=== PATIENT | female | born 1980 | race Caucasian/White ===

== ENCOUNTER 2018-03-29 09:38 | Emergency (ER) | payer SELFPAY ==
[2018-03-29] MEDS ORDERED: Lidocaine 1% (PF) 30 ML VIAL ONE (09:55)
[2018-03-29] MEDS ORDERED: Lidocaine 1% w/Epinephrine 1:100K 20 ML VIAL ONE (09:57)
[2018-03-29] MEDS ORDERED: Bacitracin Zinc 1 Packet ONE (10:10)
== END 2018-03-29 10:22 | disposition home or self-care (01) ==
LOC: ERS 09:38
DX: L02.415 Cutaneous abscess of right lower limb (principal); L02.416 Cutaneous abscess of left lower limb; E78.5 Hyperlipidemia, unspecified; I10 Essential (primary) hypertension; F17.210 Nicotine dependence, cigarettes, uncomplicated
CPT/HCPCS: 10061; J2001

== ENCOUNTER 2018-05-11 09:52 | Emergency (ER) | payer SELFPAY ==
[2018-05-11] MEDS ORDERED: Bacitracin Zinc 1 Packet ONE (11:48)
== END 2018-05-11 11:43 | disposition home or self-care (01) ==
LOC: ERS 09:52
DX: L03.115 Cellulitis of right lower limb (principal); E78.5 Hyperlipidemia, unspecified; I10 Essential (primary) hypertension; F17.210 Nicotine dependence, cigarettes, uncomplicated
CPT/HCPCS: 99283

== ENCOUNTER 2019-04-12 22:36 | Emergency (ER) | payer SELFPAY | END 2019-04-12 23:52 | disposition home or self-care (01) | LOC: ERS 22:36 | DX: L02.511 Cutaneous abscess of right hand (principal); L02.512 Cutaneous abscess of left hand; L03.113 Cellulitis of right upper limb; E78.5 Hyperlipidemia, unspecified; I10 Essential (primary) hypertension; F17.210 Nicotine dependence, cigarettes, uncomplicated | CPT/HCPCS: 99283 ==

== ENCOUNTER 2019-11-25 21:59 | Inpatient (IN) | payer OTHER, SELFPAY ==
[2019-11-25] MEDS ORDERED: EPINEPHrine 1 MG/ML AMP ONE (22:02)
[2019-11-25] MEDS ORDERED: Tranexamic Acid 1,000 MG/10 ML VIAL ONE (22:06)
[2019-11-25] MEDS ORDERED: methylPREDNISolone Sod Succ/PF 125 MG/2 ML VIAL ONE (22:06)
[2019-11-25] MEDS ORDERED: diphenhydrAMINE 50 MG/ML VIAL ONE (22:06)
[2019-11-25] MEDS ORDERED: Lidocaine 4% Topical Sol 50 ML BOT ONE (22:14)
[2019-11-25] MEDS ORDERED: Lidocaine 2% PF 5 ML VIAL ONE ×2 (22:15→22:19)
[2019-11-25] MEDS ORDERED: EPINEPHrine 1 MG, Admixture Fee 1 EACH in Dextrose 5% in Water 250 ML IVPB SCH (22:15)
[2019-11-25] MEDS ORDERED: Albuterol Sulfate 2.5 mg/3 ml Neb ONE (22:17)
--- NOTE | 2019-11-25 22:17 | PDOC.FPRHP ---
- History of Present Illness Chief Complaint: tongue swelling History of Present Illness: Sabra is a 39yoF who presents to the ED as a transfer from an outlying urgent care for acute tongue swelling. She states she ate cilantro, which has caused a reaction in the past but not this severe. She states she has a lot of food allergies. She is unable to give much more history due to difficulty speaking. Anesthesia was present in the room at the time of evaluation with the plan to take the patient to the OR for intubation. ED Course: Lidocaine neb, Epinephrine drip 1mcg/min, TXA, 125 solumedrol, glycopyrolate, NS 1L, 50mg benadryl - Allergies/Adverse Reactions Allergies Allergy/AdvReac Type Severity Reaction Status Date / Time clarithromycin [From Biaxin] Allergy Verified 11/26/19 01:41 cilantro Allergy Severe Anaphylaxis Uncoded 11/26/19 01:42 - History PMHx: HTN PSHx: C-sections FHx: Non-contributory. No fam hx of problems with anesthesia. Social: Unable to attain. - Review of Systems ROS unobtainable: other (tongue swelling, difficulty speaking. Some were asked in yes/no fashion.) ENT: reports: rhinorrhea Respiratory: reports: shortness of breath. denies: cough, congestion Cardiovascular: denies: chest pain Gastrointestinal: denies: nausea, vomiting, diarrhea Musculoskeletal: reports: swelling - Vital signs BP: 152/98, MAP: 116, Pulse: 117, Resp: 24, O2 sat: 100, Time: 11/25/2019 22:15. Weight 77kg - Physical Exam Constitutional: awake, alert and oriented -Constitutional: Tongue protruding from mouth HEENT: normocephalic and atraumatic, grossly normal vision, grossly normal hearing, MMM -HEENT: Tongue swelling, periorbital swelling Neck: trachea midline Heart: normal S1/S2, no murmurs/rubs/gallops, pulses present -Heart: Tachycardic Lungs: CTAB, no respiratory distress, good air movement, no rales/rhonchi, no wheezing, no retractions -Lungs: Upper airway noises. Abdomen: soft, non-tender, bowel sounds present Musculoskeletal: normal structure, normal tone Neurological: no focal deficit Skin: no rash/lesions, good turgor Heme/Lymphatic: no unusual bruising or bleeding, no purpura, no petechia Psychiatric: normal mood and affect FMR H&P: Results - Labs Result Diagrams: 11/25/19 22:08 11/26/19 06:52 - Radiology Interpretation Chest x-ray Status: report reviewed by me (FINDINGS: Lungs are clear. Heart and mediastinal contours appear within normal limits) FMR H&P: A/P - Problem List (1) Angioedema Current Visit: Yes Status: Acute Code(s): T78.3XXA - ANGIONEUROTIC EDEMA, INITIAL ENCOUNTER (2) HTN (hypertension) Current Visit: Yes Status: Acute Code(s): I10 - ESSENTIAL (PRIMARY) HYPERTENSION (3) Allergic reaction Current Visit: Yes Status: Acute Code(s): T78.40XA - ALLERGY, UNSPECIFIED, INITIAL ENCOUNTER - Plan Angioedema, from food allergy - Anesthesia and ENT consulted from ER. Plan to take patient to OR for intubation for airway protection overnight. - Swelling is already decreasing since arrival, anticipate intubation <48 hours. - Pulmonology consulted - FFP, steroids, antihistamines, epinephrine gtt HTN - unsure of home medication. Will reconcile tomorrow. Disposition/LOS: Dispo: Guarded, inpatient. LOS possibly > 48 hours. PCP: Olga Code: Full FMR H&P: Upper Level - Plan Date/Time: 11/25/192216 I, Benedict De La Rosa MD, have evaluated this patient and agree with findings/ plan as outlined by general internal medicine physician resident. Pertinent changes/additions are listed here. Angioedema - s/p antihistamines, steroids, and Epinephrine - Continue epinephrine drip - Patient to be intubated for airway protection by Anesthesia/ENT - FFP ordered - Admit to CCU on ventilator support until edema resolves - Supportive care as needed CODE STATUS: FULL CODE PCP: Dr. Espinoaz Disposition: Guarded, will admit to CCU for further evaluation and management. Addendum - Attending - Attending Attestation Date/Time: 11/25/192036 I personally evaluated the patient and discussed the management with Dr. Hernandez and Dr. De La Rosa I agree with the History, Examination, Assessment and Plan documented above with any addition or exceptions noted below. 39 yo female with multiple food allergies presents for tongue swelling and SOB. Patient transferred from outside facility. ENT and anaesthesia consulted from ER for ppx intubation. Will continue allergic regiment for angioedema. No skin manifestations at present. No evidence of anaphylaxis at this time either. Place in ICU on vent after intubation. John
[2019-11-25] MEDS ORDERED: Lidocaine 2% 10 ML INJ ONE (22:18)
[2019-11-25] MEDS ORDERED: Lidocaine Viscous Sol 2% 15 ml UD Cup ONE (22:19)
[2019-11-25] MEDS ORDERED: Lidocaine 2% Jelly 5 ML TUBE ONE (22:19)
[2019-11-25] MEDS ORDERED: Acetaminophen 325 MG TAB PO PRN (22:36)
--- NOTE | 2019-11-25 22:42 | RAD ---
Portable frontal chest radiograph: 11/25/2019 COMPARISON: 10/25/2008 HISTORY: Short of breath FINDINGS: Lungs are clear. Heart and mediastinal contours appear within normal limits. IMPRESSION: No acute findings.
[2019-11-25] MEDS ORDERED: Lorazepam 2 MG/ML VIAL SLOW IVP PRN (22:43)
[2019-11-25] MEDS ORDERED: Morphine 2 MG/ML SYRINGE SLOW IVP PRN (22:43)
[2019-11-25] MEDS ORDERED: Propofol BOLUS 1,000 MG/100 ML VIAL IV PRN (22:43)
[2019-11-25] MEDS ORDERED: DISCONTINUE PREVIOUS NARCOTIC PAIN MEDICATIONS AND BENZODIAZEPINES FS SCH (22:43)
[2019-11-25] MEDS ORDERED: fentaNYL Citrate/PF 2,000 MCG in Sodium Chloride 0.9% 60 ML IV SCH (22:43)
[2019-11-25] MEDS ORDERED: Fentanyl BOLUS 250 ML IVPB PRN (22:43)
[2019-11-25] MEDS ORDERED: Ventilator Sedation Protocol 1 EACH FS SCH (22:45)
[2019-11-25] MEDS ORDERED: Glycopyrrolate 0.2 MG/ML 5 ML SYRINGE FS SCH (22:45)
[2019-11-25 22:47] LABS: #Basophils 0.2 thou/uL (0.0-0.2); #Eosinphils 0.2 thou/uL (0.0-0.7); #Lymphocytes 4.4 thou/uL (1.20-3.40); #Monocytes 0.5 thou/uL (0.11-0.59); #Neutrophils 8.6 thou/uL (1.40-6.50); %Basophils 1.5 % (0.0-1.0); %Eosinophils 1.3 % (0.0-10.0); %Lymphocytes 31.5 % (21.0-51.0); %Monocytes 3.7 % (0.0-10.0); Hemoglobin 15.5 g/dL (12.0-16.0); Mean Corpuscular HGB CONC 33.1 g/dL (32.0-36.0); Mean Corpuscular Hemoglobin 30.4 pg (27.0-31.0); Mean Corpuscular Volume 91.6 fL (78.0-98.0); Mean Platelet Volume 8.3 fL (7.4-10.4); Platelet Count 320 thou/uL (130-400); RBC Distribution Width 14.7 % (11.5-14.5); Red Blood Cell (RBC) Count 5.11 mill/uL (4.20-5.40); White Blood Cell (WBC) Count 13.8 thou/uL (4.8-10.8)
[2019-11-25 22:57] LABS: Anion Gap 16 mmol/L (10-20); Carbon Dioxide 21 mmol/L (22-29); Chloride 103 mmol/L (98-107); Potassium 3.7 mmol/L (3.5-5.1); Sodium 136 mmol/L (136-145)
[2019-11-25 22:58] LABS: ALT (SGPT) 13 U/L (8-55); AST (SGOT) 16 U/L (5-34); Albumin 3.9 g/dL (3.5-5.0); Alkaline Phosphatase 99 U/L (40-110); BUN (Urea Nitrogen) 11 mg/dL (7.0-18.7); Bilirubin, Total 0.4 mg/dL (0.2-1.2); Calc. Creatinine Clearance 0 mL/min (70-130); Estimated GFR-MDRD 44; Globulin 3.8 g/dL (2.4-3.5); Glucose 112 mg/dL (70-105); Protein, Total 7.7 g/dL (6.0-8.3)
[2019-11-25] MEDS ORDERED: Dexmedetomidine 200 MCG/2 ML VIAL ONE (23:06)
[2019-11-25] MEDS ORDERED: Bacteriostatic Water 30 ML VIAL FS PRN (23:13)
[2019-11-25] MEDS ORDERED: Succinylcholine Chloride 20 MG/ML 10 ml SYRINGE FS ONE (23:24)
[2019-11-25] MEDS ORDERED: AFRIN NASAL MIST 15 ML BOT ONE (23:24)
[2019-11-25] MEDS ORDERED: Ketamine 50 MG/ML (10ML VIAL) ONE (23:44)
[2019-11-26] MEDS: Propofol 1,000 MG/100 ML VIAL IV PRN ×2 (00:20→04:37)
[2019-11-26] MEDS ORDERED: D5 1/2 NS w/20 mEq KCL 1,000 ML IV SCH (00:30)
[2019-11-26 01:10] LABS: Actual Bicarbonate (HCO3a) 16.3 mEq/L (22-28); Base Excess (BEa) -8.6 mEq/L (-2.0 to +3.0); CO2 Tension 32.4 mmHg (35.0-45.0); Calcium, Ionized 1.08 mmol/L (1.12-1.30); Hemoglobin (Hb) 13.8 g/dL (12.0-16.0); O2 Tension (PaO2) 121.5 mmHg (80.0-100.0); Potassium - ABG Lab 3.77 mmol/L (3.70-5.30); pH, Arterial 7.32 (7.35-7.45)
[2019-11-26 01:12] LABS: Puncture Site LRA
[2019-11-26 01:50] VITALS: BMI 29.9
--- NOTE | 2019-11-26 06:50 | PDOC.FM ---
- Subjective Subjective: NAEO. Patient remained stable overnight on mechanical ventilation. Sedated with propofol. - Objective MAR Reviewed: Yes Vital Signs & Weight: Vital Signs (12 hours) Temp Pulse Resp Pulse Ox 11/26/19 06:00 16 11/26/19 04:00 98.9 F 20 11/26/19 02:22 99 11/26/19 02:00 17 11/26/19 01:00 98 11/26/19 00:52 98 Weight Weight 79.2 kg Most Recent Monitor Data Heart Rate from ECG 95 NIBP 147/90 NIBP BP-Mean 109 Respiration from ECG 18 SpO2 98 I&O: 11/24/19 11/25/19 11/26/19 06:59 06:59 06:59 Intake Total 620 Output Total 665 Balance -45 Result Diagrams: 11/25/19 22:08 11/26/19 06:52 Phys Exam - Physical Examination Constitutional: NAD intubated & sedated HEENT: moist MMs, sclera anicteric Neck: supple Respiratory: no wheezing, no rales mildly coarse breath sounds in inspiration in B/L Upper lungs wick Cardiovascular: RRR, no significant murmur Gastrointestinal: soft, no distention, positive bowel sounds Musculoskeletal: no edema, pulses present unable to thoroughly assess 2/2 medical sedation Deviation from normal: unable to assess 2/2 medical sedation Skin: no rash, normal turgor, cap refill <2 seconds Dx/Plan (1) Anaphylactic reaction Code(s): T78.2XXA - ANAPHYLACTIC SHOCK, UNSPECIFIED, INITIAL ENCOUNTER Status : Acute (2) Allergic reaction Code(s): T78.40XA - ALLERGY, UNSPECIFIED, INITIAL ENCOUNTER Status: Acute (3) Angioedema Code(s): T78.3XXA - ANGIONEUROTIC EDEMA, INITIAL ENCOUNTER Status: Acute (4) HTN (hypertension) Code(s): I10 - ESSENTIAL (PRIMARY) HYPERTENSION Status: Acute - Plan Plan: 39YOF with a h/o HTN and multiple allergies who was admitted to the CCU overnight after to presenting to the ED 2/2 angioedema induced by cilantro she ingested earlier yesterday evening. Angioedema - s/p antihistamines, steroids, and Epinephrine in the ED - Patient to remain intubated for airway protection in setting of severe airway swelling per Pulmonology, Dr. Nelson, until edema resolves. Appreciate recs. - Continue NIALL IV steroids & additional supportive care PRN. MARGOT - Unknown baseline renal function status but Cr elevated at 1.34 on presentation with an eGFR of 44. Will continue IVFs & continue to trend. HTN - Aware, will obtain home medication list today & resume as tolerated by the patient. CODE STATUS: FULL CODE IVFs: D5 1/2 NS w/ 20KCl @ 100mL/hr Abx: None GGI PPX: famotidine IV BID DVT PPX: SCDs & lovenox Lines/Tubes: ET, NG, shultz & B/L UE peripheral lines all placed on 11/25/19 PCP: Dr. Espinoza Disposition: Will continue to monitor in CCU while requiring mechanical ventilatory support.
[2019-11-26 07:25] LABS: ALT (SGPT) 12 U/L (8-55); AST (SGOT) 14 U/L (5-34); Alkaline Phosphatase 91 U/L (40-110); Anion Gap 14 mmol/L (10-20); BUN (Urea Nitrogen) 10 mg/dL (7.0-18.7); Bilirubin, Total 0.3 mg/dL (0.2-1.2); Calc. Creatinine Clearance 88 mL/min (70-130); Calcium 8.9 mg/dL (7.8-10.44); Carbon Dioxide 19 mmol/L (22-29); Chloride 107 mmol/L (98-107); Estimated GFR-MDRD 57; Globulin 3.7 g/dL (2.4-3.5); Glucose 182 mg/dL (70-105); Potassium 4.9 mmol/L (3.5-5.1); Protein, Total 7.7 g/dL (6.0-8.3); Sodium 135 mmol/L (136-145)
--- NOTE | 2019-11-26 07:46 | RAD ---
PORTABLE AP CHEST XRAY: HISTORY: Endotracheal tube placement. COMPARISON: 11/25/2019. FINDINGS: There has been interval placement of an endotracheal tube with the tip overlying the T2-3 level and a deon the level of the angela. Cardiac silhouette and pulmonary vasculature are within normal limits. Lungs remain clear. No other interval change. IMPRESSION: Interval placement of an endotracheal tube overlying the T2-3 level. POS: OFF
--- NOTE | 2019-11-26 08:25 | OP ---
DATE OF PROCEDURE: 11/25/2019 PREOPERATIVE DIAGNOSIS: Angioedema of the airway with airway compromised. POSTOPERATIVE DIAGNOSIS: Angioedema of the airway with airway compromised. OPERATIVE PROCEDURE: Emergency intubation with standby for tracheostomy. ANESTHESIA: General. PREOPERATIVE NOTE: Ms. Haddad is a 39-year-old female, who has developed angioedema after eating cilantro with her evening meal and progressively has worsened and airways at risk. It was opted to intubate her to protect her airway before the swelling became worse. DESCRIPTION OF PROCEDURE: She was brought to the operating room and was numbed up with lidocaine nebulizer and then topical lidocaine placed in the mouth to get an adequate anesthesia. After given some sedation to help her tolerate it, attempts to intubate her through her mouth with a flexible scope, she became very combative. She was sedated further with ketamine and we were able to place a GlideScope in and intubate her with a GlideScope. After securing her airway, the patient was taken to the ICU for observation until her swelling goes down. Job ID: [id number]
--- NOTE | 2019-11-26 08:28 | CON ---
DATE OF CONSULTATION: 11/25/2019 REASON FOR CONSULTATION: Angioedema and airway compromise. CONSULTING PHYSICIAN: Dr. Mcghee. REASON FOR CONSULTATION: Ms. Haddad is a 39-year-old white female, who early this evening was eating and ate some cilantro and started developing swelling of her tongue and throat and began having difficulty breathing and difficulty swallowing. She presented to [facility] ER, where she was initially treated with epinephrine and steroids and seemed to be progressing and was transferred to [facility] for higher level of care. On admission to the ER at [facility], she was treated with some more epinephrine, steroids, and was consulted with Anesthesia and myself to come and evaluate the airway. The swelling did seem to be improving by the time I saw her, but still unable to handle her secretions very well, but was not in any immediate distress for the airway. It was discussed and decided that airway needed to be secured until the swelling was down in order to protect her airway. She has a prior history of reaction to cilantro with swelling of her lips. No other allergies have been noted. She is on no medications at this time. No other complaints. PAST MEDICAL HISTORY: Please see her ER note for further details for past medical history and review of systems reviewed on this date. PHYSICAL EXAMINATION: HEENT: Head is normocephalic and atraumatic. Eyes, pupils are equal, round, and reactive to light. Extraocular movements are intact. Ears, tympanic membranes are intact, mobile, and clear. Nose, normal mucosa. Some irritation of the right nostril and some swelling and clear rhinorrhea. Oral cavity and oropharynx shows large edematous tongue as well as edematous soft palate and uvula. I could not visualize the tonsils. NECK: Without significant adenopathy, masses, or edema. LUNGS: Clear to auscultation. Breath sounds are equal. No stridor is noted. HEART: Tachycardic without murmur or gallop. ABDOMEN: Soft. No distension or masses noted. NEUROLOGIC: She is alert and oriented and responding normally. IMPRESSION: Angioedema of the airway with airway compromise. PLAN: Take her to the ER and intubate her and standby for tracheostomy if unable to intubate or lose the airway. Job ID: [id number]
[2019-11-26] MEDS ORDERED: methylPREDNISolone Sod Succ/PF 125 MG/2 ML VIAL IVP SCH (09:00)
[2019-11-26] MEDS ORDERED: Enoxaparin Sodium 40 MG/0.4 ML SYRINGE SC SCH (09:00)
[2019-11-26] MEDS ORDERED: Famotidine/PF 20 mg/2ml Vial SLOW IVP SCH (09:00)
[2019-11-26] MEDS ORDERED: Nicotine 21 MG PATCH TD SCH (09:45)
--- NOTE | 2019-11-26 09:52 | CON ---
DATE OF CONSULTATION: 11/26/2019 SERVICE: Pulmonary Medicine. REASON FOR CONSULTATION: Respiratory failure. HISTORY OF PRESENT ILLNESS: The patient is a 39-year-old female with past medical history significant for an allergy to Cilantro. She knowingly ate some Cilantro. Ultimately, she developed anaphylaxis. She presented to the emergency department, and her tongue was extraordinarily swollen. She underwent an awake fiberoptic intubation in the operating room. This was without incident and she did not require an additional tracheostomy. She was put on steroids, selective and nonselective antihistamines, and given FFP as well as TXA. Overnight, her tongue completely regressed, and she recovered very comfortably in the ICU. This morning, we gave her spontaneous breathing trial, and deflated the cuff. She had a beautiful air leak. At this point, she is awake, cool, calm, and collected and denies any current specific events that precipitated this other than previously mentioned. She denies any current or recent fevers, chills, cough, sputum production, nausea, or vomiting. PAST MEDICAL HISTORY: Hypertension. PAST SURGICAL HISTORY: section. FAMILY HISTORY: Noncontributory. SOCIAL HISTORY: Unknown. ALLERGIES: CLARITHROMYCIN, CILANTRO. MEDICATIONS: List of her inpatient medications was reviewed. Multiple updates were made. REVIEW OF SYSTEMS: This cannot be obtained as the patient is currently intubated and sedated. PHYSICAL EXAMINATION: VITAL SIGNS: Afebrile, pulse 92, blood pressure 157/98, respirations 18, saturation 97%, currently on 21% FiO2 and a PEEP of 5. GENERAL: The patient is intubated and sedated. HEENT: Normocephalic and atraumatic. Sclerae white. Conjunctivae pink. Oral mucosa is moist without lesions. LUNGS: Wonderful air entry with no prolonged expiratory phase. Minimal rhonchi are present, but clear with cough. No crackles or wheezing appreciated. HEART: Normal rate and regular. ABDOMEN: Soft, nontender, and nondistended. Bowel sounds are positive. MUSCULOSKELETAL: No cyanosis or clubbing. There is no pitting in the bilateral lower extremities. NEUROLOGIC: Grossly nonfocal. LABORATORY DATA: WBC 13.8, hemoglobin 15.5, and platelets 320,000. A pH 7.32, pCO2 of 32, and pO2 of 121. Creatinine 1.06. Basic metabolic profile and liver function studies are unremarkable otherwise. IMAGING STUDIES: Chest x-ray demonstrates no acute cardiopulmonary abnormality. There is an endotracheal tube which is in excellent position. ASSESSMENT: Angioedema without anaphylaxis secondary to Cilantro ingestion, resolved. DISCUSSION AND PLAN: The patient is doing great from a respiratory standpoint. She demonstrates wonderful cuff leak. We will put her on a spontaneous breathing trial. If she meets criteria, extubation will be considered. If she does well, she can be transitioned to the floor. The interventions as already initiated will be continued including steroids and antihistamine medications. CRITICAL CARE TIME: 30 minutes. Job ID: [id number]
--- NOTE | 2019-11-26 10:42 | PRG ---
DATE OF SERVICE: 11/26/2019 ADDENDUM: This is an addendum to the note of Dr. Yara Camara. Ms. Haddad is a 39-year-old white female patient who was admitted yesterday with acute anaphylaxis. She had eaten some cilantro and began to have difficulty breathing, swallowing, and was noted to have tongue edema. She initially went to the [facility] ER where she was treated with epinephrine and steroids. However, the swelling seemed to be progressing, so she was transferred to [facility] for higher level of care. She was seen in consultation by the Anesthesia Service, who elected to intubate her in the OR. This morning, she is still intubated on the ventilator and is sedated. Her lungs are clear. Vital signs are stable. Dr. Nelson is the attending lease attendant and will likely extubate her later this morning. We will continue to follow with the lease attendant service. Job ID: [id number]
[2019-11-26] MEDS ORDERED: FLU VACC QS2019-20(6MOS UP)/PF 60 MCG/0.5 ML SYRINGE IM ONE (11:00)
[2019-11-26] MEDS ORDERED: Labetalol HCl 100 MG/20 ML VIAL SLOW IVP PRN (13:32)
[2019-11-26] MEDS: Famotidine 20 MG TAB PO SCH (20:30)
[2019-11-27] MEDS ORDERED: Melatonin 3 MG TAB PO SCH (02:45)
[2019-11-27] MEDS ORDERED: diphenhydrAMINE 25 MG CAP PO SCH (02:45)
--- NOTE | 2019-11-27 05:56 | PDOC.FM ---
- Subjective Subjective: NAEO. Patient reports feeling much better this AM. Denies any oral edema or difficulty breathing. Does have a sore throat from the ET tube. - Objective MAR Reviewed: Yes Vital Signs & Weight: Vital Signs (12 hours) Temp Pulse Resp BP Pulse Ox 11/27/19 04:33 98.3 F 100 132/85 11/27/19 00:35 98.4 F 104 H 20 130/83 100 11/26/19 20:00 98.7 F 117 H 20 130/76 97 11/26/19 18:39 98 Weight Weight 79.2 kg Most Recent Monitor Data Heart Rate from ECG 92 NIBP 132/85 NIBP BP-Mean 100 Respiration from ECG 18 SpO2 100 I&O: 11/25/19 11/26/19 11/27/19 06:59 06:59 06:59 Intake Total 620 1300 Output Total 950 1500 Balance -330 -200 Result Diagrams: 11/25/19 22:08 11/26/19 06:52 Phys Exam - Physical Examination Constitutional: NAD HEENT: moist MMs, oral pharynx no lesions Neck: supple, full ROM Respiratory: no wheezing, no rales, no rhonchi, clear to auscultation bilateral Cardiovascular: RRR, no significant murmur Gastrointestinal: soft, non-tender, no distention, positive bowel sounds Musculoskeletal: no edema, pulses present Neurological: non-focal, moves all 4 limbs Psychiatric: normal affect, A&O x 3 Skin: no rash, normal turgor Dx/Plan (1) Anaphylactic reaction Code(s): T78.2XXA - ANAPHYLACTIC SHOCK, UNSPECIFIED, INITIAL ENCOUNTER Status : Resolved Qualifiers: Encounter type: initial encounter Qualified Code(s): T78.2XXA - Anaphylactic shock, unspecified, initial encounter (2) Allergic reaction Code(s): T78.40XA - ALLERGY, UNSPECIFIED, INITIAL ENCOUNTER Status: Acute (3) Angioedema Code(s): T78.3XXA - ANGIONEUROTIC EDEMA, INITIAL ENCOUNTER Status: Resolved Qualifiers: Encounter type: initial encounter Qualified Code(s): T78.3XXA - Angioneurotic edema, initial encounter (4) HTN (hypertension) Code(s): I10 - ESSENTIAL (PRIMARY) HYPERTENSION Status: Suspected (5) Tobacco abuse Code(s): Z72.0 - TOBACCO USE Status: Acute - Plan Plan: 39YOF with a h/o HTN and multiple allergies who was initially admitted to the CCU after to presenting to the ED 2/2 angioedema induced by cilantro ingestion. Angioedema w/ anaphylaxis: - s/p antihistamines, steroids, and Epinephrine in the ED - Extubated successfully yesterday & has been stable on the medical floor overnight. Pulmonology, Dr. Nelson, on board, appreciate recs. - Continue PO steroids to complete a 5 day course total, day #3 of steroids today. Continue famotidine while inpatient. - Needs epi pen upon discharge. MARGOT, improved - Unknown baseline renal function status but Cr elevated at 1.34 on presentation but down to 1.06 by yesterday AM. HTN - Patient reports being taken off of her previous BP meds 2/2 weight loss. BP borderline overnight. Will have her f/u w/ PCP for close monitoring as an outpatient. Tobacco Use - Will college and career counselor on cessation CODE STATUS: FULL CODE IVFs: SL Abx: None GGI PPX: famotidine IV BID DVT PPX: lovenox Lines/Tubes: peripheral line all placed on 11/25/19 PCP: Dr. Espinoza Disposition: Will likely d/c home today with epi pen script and close follow-up with PCP.
[2019-11-27] MEDS ORDERED: predniSONE 20 MG TAB PO SCH (08:00)
[2019-11-27] MEDS: Famotidine 20 MG TAB PO SCH (09:14)
--- NOTE | 2019-11-27 11:18 | PRG ---
DATE OF SERVICE: 11/27/2019 Ms. Haddad has been extubated and looks and feels much better. She is tired, but otherwise feels fine. She is having no stridor, no shortness of breath, no chest discomfort. She will be discharged today with instructions on use of an EpiPen. She understands the importance of doing this. Job ID: [id number]
[2019-11-27 13:19] VITALS: BP 125/74; TEMP 98.3
--- NOTE | 2019-11-28 11:14 | DIS ---
DATE OF ADMISSION: 11/26/2019 DATE OF DISCHARGE: 11/27/2019 RESIDENT: Yara Camara MD ADMITTING ATTENDING: Jeanine Zheng MD DISCHARGE ATTENDING: Allan Aceves MD CONSULTS: 1. Pulmonology, Dr. Jhoan Nelson. 2. Anesthesiology, Dr. Clifford Merchant. PROCEDURES: 1. Chest x-ray on 11/25/2019 showing no acute findings. 2. Endotracheal intubation was standby for tracheostomy on 11/25/2019. 3. Chest x-ray on 11/26/2019, which showed interval placement of an ET tube overlying the T2-3 level. PRIMARY DIAGNOSES: 1. Angioedema with anaphylaxis secondary to allergic congestion. 2. Acute kidney injury. SECONDARY DIAGNOSES: None. DISCHARGE MEDICATIONS: 1. Epinephrine EpiPen 2 Ermias 0.3 mg per 0.3 mL Auto-Injector 0.3 mg IM one as needed. 2. Acetaminophen 650 mg p.o. q.4 hours p.r.n. 3. Prednisone 20 mg tablet 20 mg p.o. q.a.m. with meals. DISCONTINUED MEDICATIONS: None. HOSPITAL COURSE: The patient is a 39-year-old female with no significant past medical history, who presented to the emergency department as a transfer from an outlying urgent care center after presenting there for acute tongue swelling. The patient reported that she ate Cilantro, which had caused reactions in the past, but they had never been this severe. During the course of her interview, her swelling increased to the point where it became difficult for her to speak, so Anesthesia was consulted and the patient was taken to the OR for emergent intubation to prevent the need for tracheostomy. On presentation, she was tachycardic, was maintaining adequate blood pressures and was given nebulized lidocaine, TXA, 125 of Solu-Medrol and glycopyrrolate, a liter of NS, 50 mg of Benadryl and started on epinephrine drip. Routine blood work including CBC and CMP were obtained, which were notable for acute kidney injury. The patient was therefore continued on maintenance IV fluids overnight in ICU on mechanical ventilation for respiratory support. She was weaned from and did not require an epinephrine drip overnight and by the following morning, the patient was stable for extubation and was subsequently transferred to the floor for close monitoring for one additional night. The patient remained stable on the medical floor overnight, continued on p.o. steroids and antihistamines. She was deemed stable for discharge on the morning of 11/27/2019 by Pulmonology and the primary admitting team. She was counseled on the importance of following up with an Vision Specialist for allergy testing and having an EpiPen with her at all times with the hopes of preventing any future intubations from reaction similar to this. She endorsed understanding and is agreeable with our care. DISPOSITION: Stable. DISCHARGE INSTRUCTIONS: 1. Location: Home. 2. Diet: Regular diet. 3. Activity: As tolerated, no restrictions. 4. Followup: The patient was instructed to follow up with her primary care provider, Dr. Billy Espinoza within 1 week of discharge and Vision Specialist, Dr. Fred Edmondson within 2 to 3 weeks of discharge for outpatient allergy testing. Job ID: [id number]
== END 2019-11-27 14:00 | disposition home or self-care (01) | DRG 916 ==
LOC: ERS 21:59 → CCU 23:06 → T4-B 11-26 17:28
PROVIDERS: ADMIT Student in an Organized Health Care Education/Training Program; ATTEND Student in an Organized Health Care Education/Training Program
PROC: 0BH17EZ Insertion of Endotracheal Airway into Trachea, Via Natural or Artificial Opening (ICD-10-PCS; principal; 2019-11-25)
PROC: 5A1935Z Respiratory Ventilation, Less than 24 Consecutive Hours (ICD-10-PCS; 2019-11-25)
DX: T78.3XXA Angioneurotic edema, initial encounter (principal); N17.9 Acute kidney failure, unspecified; I10 Essential (primary) hypertension; T78.1XXA Other adverse food reactions, not elsewhere classified, initial encounter
CPT/HCPCS: 36415; 36430; 71045; 80053; 82805; 85025; 86850; 86900; 86901; 90471; 90686; 94002; 94003; G0008; J0171; J1200; J1650; J2001; J2704; J2930; J7070; J7512; J7611; Q0163; S0028